=== PATIENT | male | born 1960 | race African-American/Black ===

== ENCOUNTER 2017-08-15 12:32 | Emergency (ER) | payer OTHER ==
[~2017-08-15] VITALS: Ht 185.4 cm; Wt 109.1 kg
[2017-08-15 15:10] VITALS: BP 162/126
== END 2017-08-15 16:13 | disposition home or self-care (01) ==
LOC: EMS 12:34
DX: F10.129 Alcohol abuse with intoxication, unspecified (principal); Y90.9 Presence of alcohol in blood, level not specified
CPT/HCPCS: 99283